=== PATIENT | female | born 1990 | race Caucasian/White ===

== ENCOUNTER 2016-06-22 19:23 | Emergency (ER) | payer SELFPAY ==
[~2016-06-22] VITALS: Ht 160 cm; Wt 44.0 kg
[~2016-06-22 19:23] MED LIST: AMOX1TAB10 PO; DOCO200C5 PO
[2016-06-22 19:26] VITALS: Ht 160 cm; Wt 44.0 kg
== END 2016-06-23 00:50 | disposition left against medical advice (07) ==
LOC: FTE 19:23
DX: Z53.21 Procedure and treatment not carried out due to patient leaving prior to being seen by health care provider (principal)

== ENCOUNTER 2016-06-23 01:16 | Emergency (ER) | payer OTHER ==
[~2016-06-23] VITALS: Ht 162.6 cm; Wt 44.0 kg
[2016-06-23 01:29] VITALS: Ht 162.6 cm; Wt 44.0 kg
== END 2016-06-24 08:37 | disposition left against medical advice (07) ==
LOC: FTE 01:16 → E/R 06-24 08:37
DX: Z53.21 Procedure and treatment not carried out due to patient leaving prior to being seen by health care provider (principal)